=== PATIENT | male | born 1960 | race Caucasian/White ===

== ENCOUNTER 2020-08-29 13:27 | Inpatient (IN) | payer OTHER ==
[~2020-08-29] VITALS: Ht 170.2 cm; Wt 70.3 kg
[2020-08-29] MEDS ORDERED: PANTOPRAZOLE SODIUM 40 MG VIAL ONE ×3 (14:08→20:26)
[2020-08-29] MEDS ORDERED: ONDANSETRON 4 MG/2 ML VIAL ONE (14:08)
[2020-08-29] MEDS ORDERED: LORAZEPAM 2 MG/1 ML VIAL ONE (14:09)
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
[2020-08-29] MEDS ORDERED: PANTOPRAZOLE SODIUM 40 MG VIAL IV ONE (14:15)
[2020-08-29] MEDS ORDERED: LORAZEPAM 2 MG/1 ML VIAL IV ONE ×2 (14:15→20:15)
[2020-08-29] MEDS ORDERED: IV NORMAL SALINE 1000 ML BAG IV ONE ×2 (14:15→15:15)
[2020-08-29] MEDS ORDERED: ONDANSETRON 4 MG/2 ML VIAL IV ONE (14:15)
[2020-08-29 14:23] LABS: BILIRUBIN,DIRECT 0.3 mg/dL (0.0-0.2); CREATININE 0.7 mg/dL (0.6-1.3); TOTAL PROTEIN, SERUM 7.4 g/dL (6.4-8.2)
[2020-08-29 14:24] LABS: BASOPHILS % (AUTO) 0.1 % (0.0-2.0); HEMATOCRIT 50.2 % (36.7-47.1); HEMOGLOBIN 17.1 g/dL (12.5-16.3); LYMPHOCYTES # (AUTO) 1.6 K/uL (20.0-40.0); LYMPHOCYTES % (AUTO) 16.3 % (20.5-51.5); MEAN CORPUSCULAR HEMOGLOBIN 33.8 uug (23.8-33.4); MEAN CORPUSCULAR HGB CONC 34 g/dL (32.5-36.3); MEAN CORPUSCULAR VOLUME 99.4 fL (73.0-96.2); MONOCYTES # (AUTO) 0.4 K/uL (2.0-10.0); MONOCYTES % (AUTO) 4.3 % (0.0-11.0); NEUTROPHILS # (AUTO) 7.7 K/uL (1.8-8.9); NEUTROPHILS % (AUTO) 79.3 % (38.5-71.5); PLATELET COUNT (AUTO) 266 K/uL (152-348); RED BLOOD CELL COUNT(AUTO) 5.05 MIL/uL (4.06-5.63); WHITE BLOOD COUNT (AUTO) 9.7 K/uL (3.6-10.2)
[2020-08-29] MEDS ORDERED: MAGNESIUM SULFATE/D5W 100 ML IV SCH ×2 (14:45→20:15)
[2020-08-29] MEDS ORDERED: POTASSIUM CHLORIDE 50 ML IV SCH (14:45)
[2020-08-29] MEDS ORDERED: POTASSIUM CHLORIDE 50 ML ONE (15:02)
[2020-08-29] MEDS ORDERED: MAGNESIUM SULFATE/D5W 100 ML ONE ×2 (15:02→20:25)
--- NOTE | 2020-08-29 15:20 | NUR ---
Placed pt on O2 via NC at 2lpm, per MD. Pt snoring, desats to 88%, SPO2 increased to 95-96%.
--- NOTE | 2020-08-29 19:01 | NUR ---
Pt sleeping in bed, no distress noted.
--- NOTE | 2020-08-29 19:23 | NUR ---
Xray at bedside.
[2020-08-29] MEDS ORDERED: THIAMINE HCL 200 MG/2 ML VIAL IV ONE (20:15)
[2020-08-29] MEDS ORDERED: FOLIC ACID 5 MG/ML VIAL IV ONE ×2 (20:15→20:27)
[2020-08-29] MEDS ORDERED: METOCLOPRAMIDE HCL 10 MG/2 ML VIAL IV ONE (20:15)
[2020-08-29] MEDS ORDERED: PANTOPRAZOLE SODIUM IV 80 MG in IV DEXTROSE 5% 500 ML IV ONE (20:15)
[2020-08-29] MEDS ORDERED: IV LACTATED RINGERS SOLUTION 1,000 ML IV PRN (20:15)
[2020-08-29] MEDS ORDERED: THIAMINE HCL 200 MG/2 ML VIAL ONE (20:28)
--- NOTE | 2020-08-29 21:22 | NUR ---
Called [facility] to page Dr. Bishop.
--- NOTE | 2020-08-29 21:50 | NUR ---
Dr. Parham on panel call with Dr. Bishop. Patient accepted for admission to [facility], diagnosis: gi bleed, alcohol withdrawal.
--- NOTE | 2020-08-29 22:01 | NUR ---
Report given to Eli THOMAS Tele.
--- NOTE | 2020-08-29 22:25 | NUR ---
Pt came from ED c/o N/V. Pt has a history of alcoholism and has been binging. Last drink was an hour prior to ED visit. Pt. denies any SOB or CP. V/S stable on 2LNC saturating at 98%. Pt is AOX4, can follow commands. NSR on tele monitor. Pt belongings checked and with the pt. Safety measures in place. Call light within reach. Will continue with the plan of care.
[2020-08-29 23:10] VITALS: BP 128/65
[2020-08-29] MEDS ORDERED: ONDANSETRON 4 MG/2 ML VIAL IV PRN (23:30)
[2020-08-29] MEDS ORDERED: HYDROCODONE/APAP 5-325MG TABLET PO PRN (23:30)
[2020-08-29] MEDS ORDERED: Z GUARD REMEDY PASTE 57 GM TUBE TOP PRN (23:30)
[2020-08-29] MEDS ORDERED: MAGNESIUM HYDROXIDE 30 ML LIQUID UDC PO PRN (23:30)
[2020-08-30] MEDS ORDERED: THIAMINE HCL 200 MG/2 ML VIAL ONE (00:17)
[2020-08-30] MEDS: THIAMINE HCL INJ 100 MG in IV DEXTROSE 5% 50 ML IV SCH ×2 (00:28→23:02)
[2020-08-30] MEDS: IV NS 1000 ML 1,000 ML IV PRN ×2 (00:35→17:22)
[2020-08-30 01:24] VITALS: BP 116/65
[2020-08-30 04:00] VITALS: BP 131/65
[2020-08-30 06:19] LABS: BASOPHILS # (AUTO) 0.1 K/uL (0.0-8.0); BASOPHILS % (AUTO) 0.5 % (0.0-2.0); EOSINOPHILS % (AUTO) 0.5 % (0.0-7.0); HEMATOCRIT 42.6 % (36.7-47.1); HEMOGLOBIN 14.8 g/dL (12.5-16.3); LYMPHOCYTES # (AUTO) 2.3 K/uL (20.0-40.0); LYMPHOCYTES % (AUTO) 21.9 % (20.5-51.5); MEAN CORPUSCULAR HEMOGLOBIN 34.7 uug (23.8-33.4); MEAN CORPUSCULAR HGB CONC 35 g/dL (32.5-36.3); MEAN CORPUSCULAR VOLUME 100.2 fL (73.0-96.2); MONOCYTES # (AUTO) 0.7 K/uL (2.0-10.0); MONOCYTES % (AUTO) 6.8 % (0.0-11.0); NEUTROPHILS # (AUTO) 7.4 K/uL (1.8-8.9); NEUTROPHILS % (AUTO) 70.3 % (38.5-71.5); PLATELET COUNT (AUTO) 194 K/uL (152-348); RED BLOOD CELL COUNT(AUTO) 4.25 MIL/uL (4.06-5.63); WHITE BLOOD COUNT (AUTO) 10.6 K/uL (3.6-10.2)
[2020-08-30 06:40] LABS: CREATININE 0.9 mg/dL (0.6-1.3); MAGNESIUM 1.9 mg/dL (1.8-2.4); PHOSPHOROUS 1.3 mg/dL (2.5-4.9); POTASSIUM 3.8 mmol/L (3.5-5.1); TOTAL PROTEIN, SERUM 5.9 g/dL (6.4-8.2)
[2020-08-30] MEDS: LORAZEPAM 0.5 MG TABLET PO PRN (06:51)
[2020-08-30] MEDS ORDERED: POTASSIUM PHOSPHATE MM 15 MMOL in IV NORMAL SALINE 250 ML IV ONE (08:00)
[2020-08-30] MEDS: MAGNESIUM SULFATE/D5W 100 ML IV SCH ×2 (08:21→09:06)
[2020-08-30] MEDS: FOLIC ACID 1 MG TABLET PO SCH (08:22)
[2020-08-30] MEDS: PANTOPRAZOLE SODIUM 40 MG VIAL IV SCH (08:22)
[2020-08-30] MEDS: CHLORDIAZEPOXIDE HCL 25 MG CAPSULE PO SCH ×3 (08:22→16:11)
[2020-08-30] MEDS ORDERED: PIPERACILLIN SODIUM/TAZOBACTAM 4.5 G in IV DEXTROSE 5% 50 ML IV SCH (09:15)
[2020-08-30] MEDS: POTASSIUM PHOSPHATE MM 7.5 MMOL in IV NORMAL SALINE 97.5 ML IV SCH ×2 (09:26→12:30)
[2020-08-30] MEDS ORDERED: PIPERACILLIN SODIUM/TAZOBACTAM 3.375 G in IV DEXTROSE 5% 50 ML IV ONE (09:30)
[2020-08-30 11:38] VITALS: BP 130/71
[2020-08-30] MEDS ORDERED: MIDAZOLAM HCL 10 MG/2 ML VIAL ONE (15:20)
[2020-08-30] MEDS ORDERED: ACETAMINOPHEN 325 MG TABLET PO PRN (15:30)
[2020-08-30] MEDS ORDERED: ETOMIDATE 20 MG/10 ML VIAL IV ONE (15:32)
[2020-08-30] MEDS ORDERED: LIDOCAINE-MPF 2% 5 ML VIAL IJ ONE (15:32)
[2020-08-30] MEDS ORDERED: PROPOFOL 200 MG/20 ML BOTTLE IV ONE (15:32)
[2020-08-30] MEDS ORDERED: IV LACTATED RINGERS SOLUTION 1,000 ML BAG IV ONE (15:32)
[2020-08-30] MEDS: NICOTINE 21 MG/24HR PATCH TD SCH (16:11)
[2020-08-30] MEDS: SUCRALFATE 1 G/10 ML LIQUID UDC GT SCH ×2 (16:11→20:24)
[2020-08-30] MEDS: PIPERACILLIN SODIUM/TAZOBACTAM 3.37 G in IV DEXTROSE 5% 100 ML IV SCH (16:22)
[2020-08-30 16:27] VITALS: BP 137/71
[2020-08-30 20:06] VITALS: BP 127/70
[2020-08-31 00:03] VITALS: BP 129/76
[2020-08-31] MEDS: LORAZEPAM 0.5 MG TABLET PO PRN ×3 (00:15→23:15)
[2020-08-31] MEDS: PIPERACILLIN SODIUM/TAZOBACTAM 3.37 G in IV DEXTROSE 5% 100 ML IV SCH ×3 (00:15→16:40)
[2020-08-31 04:03] VITALS: BP 118/73
[2020-08-31] MEDS: SUCRALFATE 1 G/10 ML LIQUID UDC GT SCH ×4 (06:31→21:35)
--- NOTE | 2020-08-31 06:37 | NUR ---
PT SLEPT INTERMITTENTLY. PT IN NO ACUTE DISTRESS. PRESCRIBED MEDICATION GIVEN AND PT TOLERATED IT WELL. PT ON SINUS RHYTHM.PT GIVEN ATIVAN AT 0015H FOR RESTLESSNESS. SAFETY AND COMFORT PROVIDED. ALL NEEDS ARE MET. WILL ENDORSE TO INCOMING NURSE FOR CONTINUITY OF CARE.
[2020-08-31] MEDS: FOLIC ACID 1 MG TABLET PO SCH (08:31)
[2020-08-31] MEDS: CHLORDIAZEPOXIDE HCL 25 MG CAPSULE PO SCH ×3 (08:31→16:21)
[2020-08-31] MEDS: PANTOPRAZOLE SODIUM 40 MG VIAL IV SCH (08:32)
[2020-08-31] MEDS: NICOTINE 21 MG/24HR PATCH TD SCH (08:56)
[2020-08-31 09:10] LABS: BASOPHILS % (AUTO) 0.4 % (0.0-2.0); EOSINOPHILS # (AUTO) 0.2 K/uL (0.0-0.7); EOSINOPHILS % (AUTO) 2.1 % (0.0-7.0); HEMATOCRIT 44.6 % (36.7-47.1); HEMOGLOBIN 15.7 g/dL (12.5-16.3); LYMPHOCYTES % (AUTO) 22.9 % (20.5-51.5); MEAN CORPUSCULAR HEMOGLOBIN 35.2 uug (23.8-33.4); MEAN CORPUSCULAR HGB CONC 35 g/dL (32.5-36.3); MEAN CORPUSCULAR VOLUME 100.3 fL (73.0-96.2); MONOCYTES # (AUTO) 0.5 K/uL (2.0-10.0); MONOCYTES % (AUTO) 6.3 % (0.0-11.0); NEUTROPHILS # (AUTO) 5.8 K/uL (1.8-8.9); NEUTROPHILS % (AUTO) 68.3 % (38.5-71.5); PLATELET COUNT (AUTO) 178 K/uL (152-348); RED BLOOD CELL COUNT(AUTO) 4.45 MIL/uL (4.06-5.63); WHITE BLOOD COUNT (AUTO) 8.5 K/uL (3.6-10.2)
[2020-08-31 09:26] LABS: BILIRUBIN,TOTAL 2.3 mg/dL (0.2-1.0); CREATININE 0.7 mg/dL (0.6-1.3); POTASSIUM 3.4 mmol/L (3.5-5.1); TOTAL PROTEIN, SERUM 6.4 g/dL (6.4-8.2)
[2020-08-31 12:00] VITALS: BP 116/78
[2020-08-31] MEDS: IV NS 1000 ML 1,000 ML IV PRN (15:37)
[2020-08-31 16:00] VITALS: BP 126/77
[2020-08-31 20:09] VITALS: BP 122/75
[2020-08-31] MEDS: THIAMINE HCL INJ 100 MG in IV DEXTROSE 5% 50 ML IV SCH (22:54)
[2020-09-01] MEDS: PIPERACILLIN SODIUM/TAZOBACTAM 3.37 G in IV DEXTROSE 5% 100 ML IV SCH ×3 (00:03→16:46)
[2020-09-01 00:04] VITALS: BP 126/78
[2020-09-01 04:09] VITALS: BP 103/107
--- NOTE | 2020-09-01 06:50 | NUR ---
PT SLEPT INERMITTENTLY. PT IN NO ACUTE DISTRESS. IV INTACT. PRESCRIBED MEDICATION GIVEN AND PT TOLERATED IT WELL. ATIVAN 0.5MG PRN GIVEN AT 2315H. PT TOLERATED IT WELL. SAFETY AND COMFORT PROVIDED. WILL ENDORSE TO INCOMING NURSE FOR CONTINUITY OF CARE.
[2020-09-01] MEDS: SUCRALFATE 1 G/10 ML LIQUID UDC GT SCH ×3 (06:54→16:46)
--- NOTE | 2020-09-01 07:30 | NUR ---
Received patient resting in bed wake, alert and oriented times 4. No sign of distress noted. Patient is on room air and saturating well. Patient denies any pain. safety precautions are in place. Will continue to monitor.
[2020-09-01] MEDS: PANTOPRAZOLE SODIUM 40 MG VIAL IV SCH (08:25)
[2020-09-01] MEDS: FOLIC ACID 1 MG TABLET PO SCH (08:25)
[2020-09-01] MEDS: NICOTINE 21 MG/24HR PATCH TD SCH (08:25)
[2020-09-01] MEDS: CHLORDIAZEPOXIDE HCL 25 MG CAPSULE PO SCH ×3 (08:25→16:46)
--- NOTE | 2020-09-01 11:40 | NUR ---
[employer] Att[employer] Consultation: 11:00am: This SW met with patient today. Reason for consultation is alcohol withdrawal. Patient is a 60 year old male. Patient is alert, oriented, receptive to meeting with this SW. Patient states that he came to the ED on 08/29 after going on a 4 day drinking binge. Patient stated he was drinking vodka for 4 days, non-stop. Patient was previously living at a sober living facility, [address] [place] [address], however patient stated that he got kicked out when he began his drinking binge. Patient stated he was living in his car and in a hotel. Patient stated that he left his car at the [employer], and that his son has been trying to locate his car. Patient has one son, Julito, , who lives in [place], and a daughter Henrietta, , who lives in [place]. Patient stated that he has been in contact with Julito and Henrietta, and they are both aware of his current hospitalization. SW asked patient if SW could contact Julito and/or Henrietta for coordination or care and discharge planning, and patient expressed agreement. Patient reports drinking his entire life. Patient states he was sober for 19 months, during which he was staying at the sober living home in [place]. Patient reports no trigger for starting his drinking binge. Patient reports hx of drug use, stating "I used everything in the past", but stated that he does not use drug currently and that alcohol has been his primary choice of substance. Patient reports smoking 1 pack of cigarettes/day. Patient report no hx of mental illness. Patient reports no part of current SI. Patient stated that he would like to go into a treatment program, identifying [facility] and [facility] as his preferences. SW stated that SW can follow-up with these 2 programs, and patient expressed agreement. 11:30am: SUNDEEP contacted [facility] and spoke with Trisha, . Trisha stated she would call this SW back to gather information and process the intake. SW will wait for a call back, and will follow-up as needed. 11:35am: SUNDEEP called [facility] [phone] and left a voicemail message for Chyna Cortez in the intake department. SW waiting to hear back from Chnya, and will follow-up as needed. 11:40am: SW called patient's daughter Henrietta, . Henrietta was available and receptive to speaking with this SW. SW discussed discharge plans for the patient, which Henrietta expressed being aware of. Henrietta also suggested [facility] as additional options for treatment programs. SUNDEEP discussed alternative discharge plans with Henrietta, just in case patient was not able to go directly to a treatment program from the hospital, and Henrietta stated that patient can stay at her house temporarily until he can go to a treatment program. Henrietta stated that if needed, Henrietta can pick the patient up on day of discharge, after 6pm. Henrietta's [facility] is: [facility] [address] [facility] [facility] [place] [address]. SW to work with case management, patient, patient's family, and substance abuse treatment programs to coordinate a safe and proper discharge plan for the patient.
[2020-09-01 12:00] VITALS: BP 138/76
--- NOTE | 2020-09-01 12:24 | NUR ---
SW met with the patient and provided him with an update on the 2 substance abuse treatment programs that this SW had attempted to contact (see previous SS note). SW also stated that SW spoke with patient's daughter Henrietta, who had suggested [facility] and [facility]. Patient stated he was fine with being referred to [facility], but declined a referral to [facility] because he didn't want to go to a program located in [place]. SW acknowledged patient's preference, and will contact [facility]. SW also discussed the alternate discharge plan of going to patient's daughter house temporarily if patient is not able to get into a treatment program immediately, and patient expressed agreement with this plan. SW stated that SW will also provide patient with substance abuse treatment program resources, and patient expressed agreement.
[2020-09-01] MEDS ORDERED: SUCR1ORA PO (12:26)
[2020-09-01] MEDS ORDERED: CHLO25CA22 PO (12:26)
[2020-09-01] MEDS ORDERED: PANT40TA2 PO (12:26)
[2020-09-01] MEDS ORDERED: Folic Acid PO (12:26)
[2020-09-01] MEDS ORDERED: THIA500T PO (12:26)
--- NOTE | 2020-09-01 13:53 | NUR ---
1:49pm: This SW called [facility], , and spoke with Piper in Intake, regarding bed availability. Piper stated that she would inquire about the bed availability, and let this SW know.
--- NOTE | 2020-09-01 14:32 | NUR ---
SW informed by patient's nurse Rita that patient's physician has provided discharge orders for the patient. SW met with the patient, who is aware of his discharge orders and in agreement. Patient is in agreement to go home with his daughter, and work on getting into a substance abuse treatment program. SW provided patient with referrals to substance abuse programs: [address] [place], [place] [address] [facility] [address] [facility] [place] [address] [facility] [address] [place] [address]. [place], [place] [id number] [facility] [address] [place] [address]. [place], [place] [id number] [facility] [address], [place] [id number] [facility] information and meeting and schedules www.aa-intergroup.org [facility] Substance Abuse Helpline(SAS)-[facility] : Outpatient treatment, residential treatment, recovery support for youth and adults Patient expressed agreement with following up with these referrals, and thanked SUNDEEP for the information provided. SUNDEEP coordinated with patient's nurse Rita, who stated she would coordinate the discharge and contact patient's daughter for pick-up time. SUNDEEP also spoke with NIKO Keane and informed her of above.
[2020-09-01 16:03] VITALS: BP 121/75
[2020-09-01] MEDS ORDERED: INFLUENZA VACCINE 2020-2021 0.5 ML DISP.SYRIN IM ONE (17:45)
--- NOTE | 2020-09-01 18:53 | NUR ---
Patient's discharge has been processed. All paperwork has be signed and copies given to the patient. Two prescriptions given to patient. Patient's daughter Berna is scheduled to pick him up at approximately 2000. Patient is stable and resting in bed. Belongings list done and signed. Safety precautions are still in place. Will endorse to the oncoming nurse.
[2020-09-01 20:08] VITALS: BP 112/76
--- NOTE | 2020-09-01 20:28 | NUR ---
Pt picked up his daughter, Berna. V/S stable. Personal belongings and d/c papers with the patient.
== END 2020-09-01 21:28 | disposition home or self-care (01) | DRG 775 ==
LOC: ER 13:27 → TELE3 22:09
PROVIDERS: ADMIT Internal Medicine; ATTEND Registered Nurse
PROC: 0DB68ZX Excision of Stomach, Via Natural or Artificial Opening Endoscopic, Diagnostic (ICD-10-PCS; principal; 2020-08-30)
DX: F10.239 Alcohol dependence with withdrawal, unspecified (principal); K20.91 Esophagitis, unspecified with bleeding; F10.229 Alcohol dependence with intoxication, unspecified; Y90.8 Blood alcohol level of 240 mg/100 ml or more; K29.71 Gastritis, unspecified, with bleeding; G92 Toxic encephalopathy; Z20.822 Contact with and (suspected) exposure to COVID-19
CPT/HCPCS: 36415; 70030-TC; 71045; 83605; 83690; 83735; 84100; 85025; 88313-TC; 88342; 90686; 93005; A4217; C9113; G0378; G0480; J2060; J2250; J2405; J2543; J2765; J3411; J3475; J3480; J3490; J7030; J7060; J7120